=== PATIENT | male | born 1950 | race Hispanic/Latino ===

== ENCOUNTER → 2021-04-28 | Outpatient (CLI) | payer OTHER ==
[~2021-04-28] MED LIST: REGADENOSON 0.4 MG/5 ML PF SYG IVP SCH
== END | disposition home or self-care (01) ==
LOC: OIH 12:05
PROVIDERS: ATTEND Internal Medicine Cardiovascular Disease
DX: I37.1 Nonrheumatic pulmonary valve insufficiency (principal); E66.9 Obesity, unspecified; I10 Essential (primary) hypertension; R55 Syncope and collapse
CPT/HCPCS: 93306; 93356; J2785

== ENCOUNTER → 2021-04-29 | Outpatient (CLI) | payer OTHER ==
[~2021-04-29] MED LIST changes: +REGADENOSON 0.4 MG/5 ML PF SYG IVP ONE; -REGADENOSON 0.4 MG/5 ML PF SYG IVP SCH
== END | disposition home or self-care (01) ==
LOC: SHCH 08:38
PROVIDERS: ATTEND Internal Medicine Cardiovascular Disease
DX: I49.3 Ventricular premature depolarization (principal); R93.1 Abnormal findings on diagnostic imaging of heart and coronary circulation
CPT/HCPCS: 78452; 93017; 96374; A9500 ×2; J2785

== ENCOUNTER 2021-07-25 07:35 | Day surgery (SDC) | payer OTHER ==
[2021-07-20 10:41] LABS: APPEARANCE,URINE CLEAR (CLEAR); BILIRUBIN,URINE NEGATIVE (NEGATIVE); COLOR,URINE YELLOW (YELLOW); GLUCOSE, URINE (UA) NEGATIVE (NEGATIVE); KETONES,URINE NEGATIVE (NEGATIVE); LEUKOCYTE ESTERASE ,URINE NEGATIVE (NEGATIVE); NITRATE,URINE NEGATIVE (NEGATIVE); OCCULT BLOOD,URINE NEGATIVE (NEGATIVE); PROTEIN,URINE NEGATIVE (NEGATIVE)
[2021-07-20 10:41] LABS: BASOPHILS % (AUTO) 0.5 % (0.0-5.0); EOSINOPHILS % (AUTO) 2.3 % (0.0-8.0); HEMATOCRIT 41.8 % (42-54); MEAN CORPUSCULAR HEMOGLOBIN 30.2 pg (27.0-33.0); MEAN CORPUSCULAR HGB CONC 32.8 g/dL (32.0-36.0); MEAN CORPUSCULAR VOLUME 92.1 fL (79-99); MONOCYTES % (AUTO) 8.7 % (3.0-13.0); NEUTROPHILS % (AUTO) 59.3 % (40.0-77.0); PLATELET COUNT (AUTO) 190 K/uL (130-400); RED BLOOD CELL COUNT(AUTO) 4.54 MIL/uL (4.50-6.20); RED CELL DISTRIBUTION WIDTH 13.2 % (11.0-15.5)
[2021-07-20 10:57] LABS: CREATININE 1.1 mg/dL (0.5-1.5); INR 1.1 (0.85-1.15); POTASSIUM 3.5 mmol/L (3.5-5.1); PROTHROMBIN TIME 11.9 SEC (9.6-11.6)
[2021-07-20 10:58] LABS: PARTIAL THROMBOPLASTIN TIME 27.7 SEC (26.3-35.5)
[2021-07-20 11:19] LABS: BACTERIA,URINE Rare /HPF (None Seen); RBC,URINE 0-1 /HPF (0-1); SQUAMOUS EPITHELIAL CELL,UR Rare /HPF (0-2); WBC,URINE 0-1 /HPF (0-1)
[~2021-07-25] VITALS: Ht 175.3 cm; Wt 95.5 kg
[2021-07-25] VITALS (11 sets, daily range): BP systolic 97–153; BP diastolic 54–82
[~2021-07-25 07:35] MED LIST changes: +0.9% NACL 500ML IV.SOLN 500 ML IV SCH; -REGADENOSON 0.4 MG/5 ML PF SYG IVP ONE
[2021-07-25] MEDS ORDERED: 0.9%NACL 1000ML 1,000 ML IV ONE (07:56)
[2021-07-25] MEDS ORDERED: TAMS-1 PO (08:26)
[2021-07-25] MEDS ORDERED: BUSP10TA3 PO (08:26)
[2021-07-25] MEDS ORDERED: ESCI-8 PO (08:26)
[2021-07-25] MEDS ORDERED: HYDR25TA PO (08:26)
[2021-07-25] MEDS ORDERED: DOXA4TAB3 PO (08:26)
[2021-07-25] MEDS ORDERED: FINA5TAB41 PO (08:26)
[2021-07-25] MEDS ORDERED: METO-391 PO (08:26)
[2021-07-25] MEDS ORDERED: MELA3CAP2 PO (08:26)
[2021-07-25] MEDS ORDERED: NICARDIPINE 25MG INJ IV ONE (08:57)
[2021-07-25] MEDS ORDERED: SODIUM BICARB 50MEQ 50ML VIAL 50 ML ONE (08:57)
[2021-07-25] MEDS ORDERED: IOHEXOL-350 50ML VIAL IV ONE (08:58)
[2021-07-25] MEDS ORDERED: IOHEXOL 350 MG/ML 100ML INFUS..BTL IV ONE (08:58)
[2021-07-25] MEDS ORDERED: NITROGLYCERIN 50MG VIAL ONE (08:58)
[2021-07-25] MEDS ORDERED: HEPARIN 10,000 UNIT/10ML (1,000 UNIT/ML) VIAL ONE (08:58)
[2021-07-25] MEDS ORDERED: MIDAZOLAM HCL 1 MG/ML 2ML VIAL ONE ×2 (08:58→09:32)
[2021-07-25] MEDS ORDERED: LIDOCAINE HCL 400MG/20ML VIAL ONE (08:59)
[2021-07-25] MEDS ORDERED: MEPERIDINE-PF 50 MG/ML SYG ONE (09:14)
[2021-07-25 11:23] LABS: CHOLESTEROL 114 mg/dL (<200); HDL CHOLESTEROL 43 mg/dL (29-71); LDL DIRECT 62 mg/dL (0-99); TRIGLYCERIDES 59 mg/dL (30-200)
== END 2021-07-25 14:13 | disposition home or self-care (01) ==
LOC: DAH 07:35
PROVIDERS: ATTEND Internal Medicine Cardiovascular Disease
DX: I25.118 Atherosclerotic heart disease of native coronary artery with other forms of angina pectoris (principal); I10 Essential (primary) hypertension; Z90.89 Acquired absence of other organs; Z79.01 Long term (current) use of anticoagulants; Z79.899 Other long term (current) drug therapy
CPT/HCPCS: 36415 ×2; 71045; 80048; 80061; 81001; 85025; 85610; 85730; 93005; 93458; A4215; A4216; A4221; A4222; A4223 ×3; A4606; A4663; C1760; C1769; C1894 ×2; J1644 ×2; J2175; J2250 ×2; J3490 ×4; J7030; Q9965; Q9967 ×2; 96360; 96361; 99156; 99157

== ENCOUNTER → 2024-07-26 | Outpatient (CLI) | payer OTHER ==
[~2024-07-26] MED LIST changes: -0.9% NACL 500ML IV.SOLN 500 ML IV SCH; +BUSP10TA3 PO; +DOXA4TAB3 PO; +ESCI-8 PO; +FINA5TAB41 PO; +HYDR25TA PO; +MELA3CAP2 PO; +METO-391 PO; +TAMS-1 PO
--- NOTE | 2024-07-28 13:45 | HMCSR ---
APPROVED REPORT EXAM: Two-dimensional and M-mode echocardiogram with Doppler and color Doppler. INDICATION ICD: I25.10 Atherosclerotic heart disease of [place] coronary artery without angina pectoris 2D Dimensions RVDd3.2 cmLVEF(%)26.2 (>50%)LVEF(%, simp.)55 % IVSd1.1 (0.7-1.1cm)FS(%)12 %LA ESV INDEX (BP)31.79 mL/m2 LVDd4.3 (3.8-5.6cm)LA (2D)4.5 (1.6-4.0cm) PWd1.3 (0.7-1.1cm)Ao Root(2D)3.4 (2.0-3.7cm) IVSs1.4 cmLVOT diam2.3 (1.8-2.4cm) LVDs3.8 (2.5-4.0cm)IVC diam1.8 cm PWs1.3 cm M-Mode Dimensions EPSS0.9 cm LA (MM)4.2 (1.6-4.0cm) Ao Root(MM)3.9 (2.0-3.7cm) Aortic Valve AoV Vmax1.0 m/[place] Peak GR3.9 mmHgLVOT Vmax0.7 m/s AoV VTI0.2 mAo Mean GR2.3 mmHgLVOT VTI0.16 m RICARDO (VMAX)3.0 cm2AVA (VTI) 3.0 cm2 Mitral Valve MV E Vmax63.8 cm/sDECEL Ymuh950 ms MV A Vmax73.8 cm/sP 1/2 T84 ms E/A ratio0.9MVA (PHT)2.6 cm2 TDI E/E' Xfpbea54.8E/E' Lateral9.1 Medial E' Peak V5.00 cm/sLateral E' Peak V7.00 cm/s Pulmonary Valve PV Vmax0.7 m/s Tricuspid Valve TR Vmax2.2 m/sRAP (EST) 3 [id number] mmHg TR Peak GR20.0 mmHg Left Ventricle The left ventricle is normal size. There is normal left ventricular wall thickness. LVEF is 45-50%. N o left ventricle thrombus noted on this study. Stage I diastolic dysfunction. Right Ventricle The right ventricle is normal size. The right ventricular systolic function is normal. Atria The left atrium size is normal. The right atrium size is normal. Aortic Valve The aortic valve is trileaflet normal in structure. No aortic regurgitation is present. There is no a ortic valvular stenosis. Mitral Valve The mitral valve is normal in structure. There is trace of mitral valve regurgitation noted. There is no mitral valve stenosis. Tricuspid Valve The tricuspid valve is normal in structure. There is trace of tricuspid valve regurgitation noted. Pulmonic Valve The pulmonary valve is normal in structure. There is no pulmonic valvular regurgitation. Great Vessels The aortic root is normal in size. The IVC is normal in size and collapses >50% with inspiration. Pericardium There is no pericardial effusion. Other Information Quality : AdequateRhythm : A Conclusion The left ventricle is normal size. LVEF is 45-50%. Stage I diastolic dysfunction. The right ventricle is normal size. The left atrium size is normal. The aortic valve is trileaflet normal in structure. The mitral valve is normal in structure. There is trace of mitral valve regurgitation noted. There is no mitral valve stenosis. There is trace of tricuspid valve regurgitation noted. There is no pulmonic valvular regurgitation. The aortic root is normal in size. The IVC is normal in size and collapses >50% with inspiration. There is no pericardial effusion.
== END | disposition home or self-care (01) ==
LOC: SHCH 09:42
PROVIDERS: ATTEND Internal Medicine Cardiovascular Disease
DX: I25.10 Atherosclerotic heart disease of native coronary artery without angina pectoris (principal)
CPT/HCPCS: 93306